=== PATIENT | male | born 1995 | race Caucasian/White ===

== ENCOUNTER 2019-05-10 18:29 | Emergency (ER) | payer OTHER ==
[~2019-05-10] VITALS: Ht 177.8 cm; Wt 75.0 kg
[2019-05-10] MEDS ORDERED: LORAZEPAM 2MG/ML CPJ IV ONE (19:30)
[2019-05-10] MEDS ORDERED: LORAZEPAM 2MG/ML CPJ IM STA (19:30)
[2019-05-10] MEDS ORDERED: OLANZAPINE 10 MG/VIAL IM STA (19:30)
[2019-05-10] MEDS ORDERED: SODIUM CHLORIDE 0.9% 1,000 ML IV ONE ×2 (19:30→23:22)
[2019-05-10 20:34] LABS: BASOPHILS % 0.6 % (0.0-2.0); EOSINOPHILS % 0.9 % (0.0-5.0); HEMOGLOBIN. 15.4 g/dL (14.0-18.0); LYMPHOCYTES % 15.2 % (20.0-50.0); MEAN CORPUSCULAR HEMOGLOBIN 29.2 pg (28.0-32.0); MEAN CORPUSCULAR VOLUME 83.2 fL (80.0-94.0); MEAN PLATELET VOLUME 7.7 fl (7.4-10.4); MONOCYTES % 9.9 % (2.0-8.0); NEUTROPHILS % 73.4 % (40.0-76.0); PLATELET 224 x1000/uL (130-400); RED BLOOD CELL COUNT 5.29 mill/uL (4.7-6.1); RED CELL DISTRIBUTION WIDTH 13.7 % (11.6-14.6)
[2019-05-10 20:45] LABS: CHLORIDE 103 mEq/L (98-107)
[2019-05-10 20:49] LABS: ETHANOL BLOOD < 10 mg/dL
[2019-05-10 20:54] LABS: CREATINE KINASE 905 IU/L (39-308)
[2019-05-10 20:56] LABS: CREATINE KINASE MB FRACTION 13.6 ng/mL (0.5-3.6)
[2019-05-10 21:38] LABS: CLARITY URINE CLEAR (CLEAR); COLOR URINE DARK YELLOW (YELLOW); KETONES URINE 4+ (NEGATIVE); LEUKOCYTE ESTERASE URINE NEGATIVE (NEGATIVE); NITRITE URINE NEGATIVE (NEGATIVE); OCCULT BLOOD URINE NEGATIVE (NEGATIVE); PROTEIN URINE 1+ (NEGATIVE); SPECIFIC GRAVITY URINE 1.029 (1.005-1.030)
[2019-05-10 21:53] LABS: *BARBITURATES SCREEN URINE NEGATIVE (NEGATIVE)
[2019-05-10 21:54] LABS: *AMPHETAMINES SCREEN URINE PRESUMTIVE POSITIVE (NEGATIVE); *BENZODIAZEPINES SCREEN URINE NEGATIVE (NEGATIVE); *COCAINE SCREEN URINE NEGATIVE (NEGATIVE); METHADONE URINE SCREEN NEGATIVE (NEGATIVE); OPIATES URINE SCREEN NEGATIVE (NEGATIVE)
[2019-05-10 21:55] LABS: CANNABINOID URINE SCREEN NEGATIVE (NEGATIVE); PHENCYCLIDINE URINE SCREEN NEGATIVE (NEGATIVE)
[2019-05-11] MEDS ORDERED: SODIUM CHLORIDE 0.9% 1,000 ML IV ONE ×2 (00:46→01:52)
[2019-05-11 02:22] LABS: CREATINE KINASE 700 IU/L (39-308)
[2019-05-11 05:36] VITALS: BP 115/69
[2019-05-11 06:25] LABS: CHLORIDE 111 mEq/L (98-107)
== END 2019-05-11 06:57 | disposition home or self-care (01) ==
LOC: ER 18:29
DX: F29 Unspecified psychosis not due to a substance or known physiological condition (principal); F19.10 Other psychoactive substance abuse, uncomplicated
CPT/HCPCS: 36415; 70450; 80053; 80305; 80307; 80320; 80329; 81003; 82140; 82550; 82553; 82962; 84443; 85025; 93005; 96361; 96372; 96374; 99284; J2060; J3490; J7030; G0480